=== PATIENT | male | born 1965 | race African-American/Black ===

== ENCOUNTER 2018-12-09 14:55 | Inpatient (IN) | payer OTHER ==
[2018-12-09 16:47] VITALS: BMI 25.0
--- NOTE | 2018-12-09 18:26 | HP ---
CIWA Score - Admission Criteria [facility] Guidelines: Admission for Medically Managed Detox: Requires at least one of the followin. CIWA greater than 12 2. Seizures within the past 24 hours 3. Delirium tremens within the past 24 hours 4. Hallucinations within the past 24 hours 5. Acute intervention needed for co occurring medical disorder 6. Acute intervention needed for co occurring psychiatric disorder 7. Severe withdrawal that cannot be handled at a lower level of care (continued vomiting, continued diarrhea, abnormal vital signs) requiring intravenous medication and/or fluids 8. Admission ROS [facility] - [facility] Chief Complaint: 52 y/o M with PMH HTN, HIV (unknown cd4, VL), who presents for rehab from heroin. Per pt, has been using 1-2 bags of heroin daily. Last used day before yesterday via inhalation. Has been in a methadone program at [address] Is on a dose of 60mg qd. Took it yesterday, but not today. Is interested in going on suboxone. States that his longest sobriety was 8 months. Also has been using cocaine, which he mixes with tobacco. $10 bag/ per day. Denies IVDA, past OD, or seizures. Denies alcohol use. This is pt's first time at [facility]. Denies other rehab or detox. Referred here by legal officer, states he was convicted. PMH: as above PsxH: denies meds: odyfesey (for HIV), asa, amlodipine, gabapentin allergies: NKDA FH: denies SH: rents a room. on parole. smokes 1/2 ppd x 10-15 yrs. denies alcohol use or other drug use other than above. Allergies/Adverse Reactions: Allergies Allergy/AdvReac Type Severity Reaction Status Date / Time No Known Allergies Allergy Verified 12/09/18 16:31 Exam Limitations: No Limitations - Ebola screening Have you traveled outside of the country in the last 21 days: No Have you had contact with anyone from an Ebola affected area: No Have you been sick,other than usual withdrawal symptoms: No Do you have a fever: No - Review of Systems Constitutional: Chills, Fever, Night Sweats, Unexplained wgt Loss EENT: reports: Blurred Vision, Throat Pain Respiratory: reports: Shortness of Breath Cardiac: reports: No Symptoms Reported GI: reports: No Symptoms Reported : reports: No Symptoms Reported Musculoskeletal: reports: Back Pain, Joint Pain Integumentary: reports: No Symptoms Reported Neuro: reports: Headache Endocrine: reports: No Symptoms Reported Hematology: reports: No Symptoms Reported Psychiatric: reports: Orientated x3 Patient History - Patient Medical History Hx Anemia: No Hx Asthma: No Hx Chronic Obstructive Pulmonary Disease (COPD): No Hx Cancer: No Hx Cardiac Disorders: No Hx Congestive Heart Failure: No Hx Hypertension: Yes Hx Hypercholesterolemia: No Hx Pacemaker: No HX Cerebrovascular Accident: No Hx Seizures: No Hx Dementia: No Hx Diabetes: No Hx Gastrointestinal Disorders: No Hx Liver Disease: No Hx Genitourinary Disorders: No Hx Sexually Transmitted Disorders: No Hx Renal Disease (ESRD): No Hx Thyroid Disease: No Hx Human Immunodeficiency Virus (HIV): Yes Hx Hepatitis C: No Hx Depression: No Hx Suicide Attempt: No Hx Bipolar Disorder: No Hx Schizophrenia: No - Patient Surgical History Past Surgical History: No - PPD History Documented Results: Positive w/o proof PPD to be Administered?: No - Reproductive History Patient is a Female of Child Bearing Age (11 -55 yrs old): No - Smoking Cessation Smoking history: Current every day smoker Have you smoked in the past 12 months: Yes Aproximately how many cigarettes per day: 10 Hx Chewing Tobacco Use: No Initiated information on smoking cessation: Yes 'Breaking Loose' booklet given: 12/09/18 - Substance & Tx. History Substance Use Type: Cocaine, Heroin - Substances abused Heroin Substance route: Inhalation Frequency: Daily Amount used: 2bags Age of first use: 44 Date of last use: 12/08/18 Cocaine Substance route: Smoking Frequency: Daily Amount used: $10 daily Family Disease History - Family Disease History Family History: Denies Admission Physical Exam S - Vital Signs Vital Signs: Vital Signs - 24 hr 12/09/18 16:30 Temperature 96.8 F L Pulse Rate 48 L Respiratory 18 Rate Blood Pressure 144/74 - Physical General Appearance: Yes: Within Normal Limits HEENTM: Yes: Within Normal Limits Respiratory: Yes: Lungs Clear Neck: Yes: Supple Breast: Yes: Breast Exam Deferred Cardiology: Yes: Regular Rhythm, Regular Rate, S1, S2 Abdominal: Yes: Within Normal Limits, Flat Genitourinary: Yes: Within Normal Limits Back: Yes: Within Normal Limits Musculoskeletal: Yes: full range of Motion Extremities: Yes: Normal Capillary Refill Neurological: Yes: crossbar frame wirer II-XII NML intact Integumentary: Yes: Within Normal Limits Lymphatic: Yes: Within Normal Limits - Diagnostic (1) Hypertension Current Visit: Yes Status: Chronic (2) HIV (human immunodeficiency virus infection) Current Visit: Yes Status: Chronic (3) Heroin dependence Current Visit: Yes Status: Chronic (4) Cocaine dependence Current Visit: Yes Status: Chronic Cleared for Admission S - Detox or Rehab [facility] Level of Care: Medically Managed Detox Regimen/Protocol: Not Applicable Claeared for Rehab Admission: Yes Breathalyzer - Breathalyzer Breathalyzer: 0 Urine Drug Screen - Test Device Lot number: [id number] Expiration date: 09/21/20 - Control Is test valid?: Yes - Results Drug screen NEGATIVE: No Urine drug screen results: THC-Marijuana, CAROL-Cocaine, FEN-Fentanyl, MOP-Opiates , MTD-Methadone Inpatient Rehab Admission - Rehab Decision to Admit Inpatient rehab admission?: Yes - Initial Determination Are CD services needed?: Yes Free of communicable disease: Yes Not in need of hospitalization: Yes - Rehab Admission Criteria Previous failed treatment: Yes Poor recovery environment: Yes Comorbidities: Yes Lacks judgement: No Patient is meeting Inpatient Rehab admission criteria:: Yes
[2018-12-09] MEDS ORDERED: guaiFENesin 200 MG/10 ML 10 ML UNIT-DOSE CUPS PO PRN (19:38)
[2018-12-09] MEDS ORDERED: P-EPHED 60MG/TRIPROLIDI 2.5MG TABLET PO PRN (19:38)
[2018-12-09] MEDS ORDERED: LOPERAMIDE HCL 2 MG CAPSULE PO PRN (19:38)
[2018-12-09] MEDS ORDERED: MAGNESIUM CITRATE 300 ML BOTTLE PO PRN (19:38)
[2018-12-09] MEDS ORDERED: MAGNESIUM HYDROX 2400MG/30ML ORAL SUSPENSION 30 ML CUP PO PRN (19:38)
[2018-12-09] MEDS ORDERED: MENTHOL/PHENOL 1 EACH UD MM PRN (19:38)
[2018-12-09] MEDS ORDERED: MAG HYDROX/AL HYDROX/SIMETH 30 ML UNIT-DOSE CUP PO PRN (19:38)
[2018-12-09] MEDS: THIAMINE HCL 100 MG TABLET (FP) PO SCH (22:22)
[2018-12-09] MEDS: MELATONIN 5 MG TABLETS PO PRN (22:22)
[2018-12-09 23:10] LABS: URINE APPEARANCE CLEAR; URINE BILIRUBIN NEGATIVE (NEGATIVE); URINE COLOR YELLOW; URINE GLUCOSE (UA) NEGATIVE (NEGATIVE); URINE KETONE NEGATIVE (NEGATIVE); URINE LEUK ESTERASE NEGATIVE (NEGATIVE); URINE NITRITE NEGATIVE (NEGATIVE); URINE PROTEIN NEGATIVE (NEGATIVE); URINE UROBILINOGEN 0.2 mg/dL (0.2-1.0)
[2018-12-10] MEDS ORDERED: METHADONE HCL 10 MG TABLET PO ONE (10:35)
[2018-12-10] MEDS ORDERED: METHADONE 40 MG, METHADONE 20 MG PO ONE (10:45)
[2018-12-10] MEDS ORDERED: METHADONE HCL 10 MG TABLET ONE (10:55)
[2018-12-10] MEDS ORDERED: METHADONE HCL 40 MG DISPERSABLE TABLET ONE (10:55)
[2018-12-10] MEDS: amLODIPine BESYLATE 10 MG TABLET (FP) PO SCH (10:59)
[2018-12-10] MEDS: ASPIRIN COATED 81 MG TABLET.EC PO SCH (11:01)
[2018-12-10] MEDS: PRENATAL VITAMINS W/ FOLIC ACID TABLET (FP) PO SCH (11:02)
[2018-12-10] MEDS: EMTRICITAB/RILPIVIRI/TENOF ALA (ODEFSEY) TABLET PO SCH (12:20)
[2018-12-10] MEDS: THIAMINE HCL 100 MG TABLET (FP) PO SCH (21:54)
[2018-12-10] MEDS: MELATONIN 5 MG TABLETS PO PRN (21:54)
[2018-12-11] MEDS ORDERED: METHADONE HCL 10 MG TABLET PO SCH (06:00)
[2018-12-11] MEDS ORDERED: METHADONE 40 MG, METHADONE 30 MG PO SCH (06:00)
[2018-12-11] MEDS ORDERED: METHADONE HCL 40 MG DISPERSABLE TABLET ONE (06:02)
[2018-12-11] MEDS ORDERED: METHADONE HCL 10 MG TABLET ONE (06:02)
[2018-12-11] MEDS: METHADONE 40 MG, METHADONE 20 MG PO SCH (07:14)
[2018-12-11] MEDS: ASPIRIN COATED 81 MG TABLET.EC PO SCH (09:58)
[2018-12-11] MEDS: PRENATAL VITAMINS W/ FOLIC ACID TABLET (FP) PO SCH (09:58)
[2018-12-11] MEDS: amLODIPine BESYLATE 10 MG TABLET (FP) PO SCH (09:58)
[2018-12-11] MEDS: EMTRICITAB/RILPIVIRI/TENOF ALA (ODEFSEY) TABLET PO SCH (09:59)
[2018-12-11] MEDS ORDERED: NICOTINE POLACRILEX 2 MG GUM BUC PRN (15:14)
[2018-12-11] MEDS: NICOTINE 14 MG/24 HOURS TOPICAL PATCH TD SCH (15:30)
[2018-12-11] MEDS: MELATONIN 5 MG TABLETS PO PRN (21:52)
[2018-12-11] MEDS: THIAMINE HCL 100 MG TABLET (FP) PO SCH (21:52)
[2018-12-12] MEDS ORDERED: METHADONE HCL 10 MG TABLET ONE (06:45)
[2018-12-12] MEDS ORDERED: METHADONE HCL 40 MG DISPERSABLE TABLET ONE (06:46)
[2018-12-12] MEDS: METHADONE 40 MG, METHADONE 20 MG PO SCH (06:48)
[2018-12-12] MEDS: NICOTINE 14 MG/24 HOURS TOPICAL PATCH TD SCH (10:34)
[2018-12-12] MEDS: EMTRICITAB/RILPIVIRI/TENOF ALA (ODEFSEY) TABLET PO SCH (10:35)
[2018-12-12] MEDS: PRENATAL VITAMINS W/ FOLIC ACID TABLET (FP) PO SCH (10:35)
[2018-12-12] MEDS: ASPIRIN COATED 81 MG TABLET.EC PO SCH (10:35)
[2018-12-12] MEDS: amLODIPine BESYLATE 10 MG TABLET (FP) PO SCH (10:35)
[2018-12-12] MEDS: GABAPENTIN 300 MG CAPSULE (FP) PO SCH ×2 (14:16→21:52)
[2018-12-12] MEDS: THIAMINE HCL 100 MG TABLET (FP) PO SCH (21:52)
[2018-12-12] MEDS: MELATONIN 5 MG TABLETS PO PRN (21:52)
[2018-12-13] MEDS ORDERED: METHADONE HCL 40 MG DISPERSABLE TABLET ONE (05:45)
[2018-12-13] MEDS ORDERED: METHADONE HCL 10 MG TABLET ONE (05:45)
[2018-12-13] MEDS: METHADONE 40 MG, METHADONE 20 MG PO SCH (06:41)
[2018-12-13] MEDS: GABAPENTIN 300 MG CAPSULE (FP) PO SCH ×3 (06:41→21:51)
[2018-12-13] MEDS: NICOTINE 14 MG/24 HOURS TOPICAL PATCH TD SCH (10:12)
[2018-12-13] MEDS: EMTRICITAB/RILPIVIRI/TENOF ALA (ODEFSEY) TABLET PO SCH (10:13)
[2018-12-13] MEDS: amLODIPine BESYLATE 10 MG TABLET (FP) PO SCH (10:13)
[2018-12-13] MEDS: PRENATAL VITAMINS W/ FOLIC ACID TABLET (FP) PO SCH (10:13)
[2018-12-13] MEDS: ASPIRIN COATED 81 MG TABLET.EC PO SCH (11:10)
--- NOTE | 2018-12-13 11:24 | PN ---
[facility] Progress Note Note: PT REQUESTING SEROQUEL FOR INSOMNIA. PSYCH EVAL ORDERED PER PT'S REQUEST.
[2018-12-13] MEDS: MELATONIN 5 MG TABLETS PO PRN (21:51)
[2018-12-13] MEDS: THIAMINE HCL 100 MG TABLET (FP) PO SCH (21:51)
[2018-12-14] MEDS ORDERED: METHADONE HCL 10 MG TABLET ONE (05:47)
[2018-12-14] MEDS ORDERED: METHADONE HCL 40 MG DISPERSABLE TABLET ONE (05:48)
[2018-12-14] MEDS: METHADONE 40 MG, METHADONE 20 MG PO SCH (06:33)
[2018-12-14] MEDS: GABAPENTIN 300 MG CAPSULE (FP) PO SCH ×3 (07:05→21:31)
--- NOTE | 2018-12-14 10:53 | PN ---
S Progress Note Note: pt c/o hx sciatica pain that shoots down his right leg fron the hip. Reports occasional numbness and swelling to right foot/toe when he gets up in the morning but did not experience it this morning because stating he elevated his legs in bed. Pt ambulates with a cane with a slight limp. Vital Signs - 24 hr 12/14/18 12/14/18 12/14/18 00:30 03:30 07:12 Temperature 98.1 F Pulse Rate 47 L Respiratory 16 18 18 Rate Blood Pressure 147/79 Laboratory Tests 12/09/18 21:35 Urine Color Yellow Urine Appearance Clear Urine pH 6.0 Ur Specific [place] 1.024 Urine Protein Negative Urine Glucose (UA) Negative Urine Ketones Negative Urine Blood Negative Urine Nitrite Negative Urine Bilirubin Negative Urine Urobilinogen 0.2 Ur Leukocyte Esterase Negative extremities:No edema/cyanosis/clubbing A:hx Lbp sciatica Plan:lidocain patch 2% td apply daily as directed. analgesic balm apply to area @hs. Maintain safety.
[2018-12-14] MEDS: NICOTINE 14 MG/24 HOURS TOPICAL PATCH TD SCH (10:54)
[2018-12-14] MEDS: PRENATAL VITAMINS W/ FOLIC ACID TABLET (FP) PO SCH (10:54)
[2018-12-14] MEDS: amLODIPine BESYLATE 10 MG TABLET (FP) PO SCH (10:54)
[2018-12-14] MEDS: EMTRICITAB/RILPIVIRI/TENOF ALA (ODEFSEY) TABLET PO SCH (10:55)
[2018-12-14] MEDS: ASPIRIN COATED 81 MG TABLET.EC PO SCH (10:56)
[2018-12-14] MEDS: LIDOCAINE 5% TOPICAL PATCH TP SCH (12:34)
--- NOTE | 2018-12-14 14:17 | CONSULT ---
[facility] Psychiatric Consult - Data Date of interview: 12/14/18 Admission source: [facility] Identifying data: Mr Hawthorne is a 52 years old single Black male, unemployed receiving food stamp, living in [facility] seeking rehab treatment for opioid and cocaine Substance Abuse History: reports history of heroin and cocaine use. Refer to addiction counselor's summary for further information Medical History: Significant for hypertension, HIV since 2011, history of treatment for PPD+. Smokes 10 cigarettes daily Psychiatric History: Denies history of previous psychiatric treatment. However, reports suffering from difficulty to sleep Physical/Sexual Abuse/Trauma History: Denies history of emotional, physical or sexual abuse as well as DV relationship Additional Comment: Reports history of multiple previous arrests including one felony conviction for which he served 27 years in detention. Told service writer that he was first released in 2011 then went back for 2 years from [id number] on parole violation. Now on life parole Mental Status Exam - Mental Status Exam Alert and Oriented to: Time, Place, Person Cognitive Function: Fair Patient Appearance: Disheveled Mood: Hopeful, Euthymic Patient Behavior: Cooperative Speech Pattern: Clear Voice Loudness: Normal Thought Process: Intact Thought Disorder: Not Present Hallucinations: Denies Suicidal Ideation: Denies Homicidal Ideation: Denies Insight/Judgement: Poor Sleep: Poorly Appetite: Good Muscle strength/Tone: Severe Hypertonicity Gait/Station: Normal Psychiatric Findings - Problem List ([place] 1, 2,3) (1) Substance-induced sleep disorder Current Visit: Yes Status: Acute (2) Opioid dependence Current Visit: Yes Status: Acute (3) Cocaine dependence Current Visit: Yes Status: Acute (4) Nicotine dependence Current Visit: Yes Status: Chronic (5) HIV (human immunodeficiency virus infection) Current Visit: Yes Status: Chronic (6) Hypertension Current Visit: Yes Status: Chronic (7) PPD positive, treated Current Visit: Yes Status: Resolved - Initial Treatment Plan Initial Treatment Plan: 1) Start Belsomra 10 mg po HS prn for insomnia. 2) Continue inpatient rehabilitation
[2018-12-14] MEDS: THIAMINE HCL 100 MG TABLET (FP) PO SCH (21:32)
[2018-12-14] MEDS: SUVOREXANT 10 MG TABLET PO PRN (21:33)
[2018-12-14] MEDS: METHYL SALICYLATE/MENTHOL OINT 30 GM TUBE TP SCH (21:54)
[2018-12-14] MEDS: LIDOCAINE PATCH REMOVAL MC SCH (21:54)
[2018-12-15] MEDS ORDERED: METHADONE HCL 10 MG TABLET ONE (06:04)
[2018-12-15] MEDS ORDERED: METHADONE HCL 40 MG DISPERSABLE TABLET ONE (06:04)
[2018-12-15] MEDS: GABAPENTIN 300 MG CAPSULE (FP) PO SCH ×3 (06:29→21:44)
[2018-12-15] MEDS: METHADONE 40 MG, METHADONE 20 MG PO SCH (06:29)
[2018-12-15] MEDS: amLODIPine BESYLATE 10 MG TABLET (FP) PO SCH (10:34)
[2018-12-15] MEDS: ASPIRIN COATED 81 MG TABLET.EC PO SCH (10:35)
[2018-12-15] MEDS: NICOTINE 14 MG/24 HOURS TOPICAL PATCH TD SCH (10:35)
[2018-12-15] MEDS: PRENATAL VITAMINS W/ FOLIC ACID TABLET (FP) PO SCH (10:35)
[2018-12-15] MEDS: LIDOCAINE 5% TOPICAL PATCH TP SCH (10:35)
[2018-12-15] MEDS: EMTRICITAB/RILPIVIRI/TENOF ALA (ODEFSEY) TABLET PO SCH (10:36)
[2018-12-15] MEDS: THIAMINE HCL 100 MG TABLET (FP) PO SCH (21:44)
[2018-12-15] MEDS: SUVOREXANT 10 MG TABLET PO PRN (21:45)
[2018-12-15] MEDS: METHYL SALICYLATE/MENTHOL OINT 30 GM TUBE TP SCH (21:46)
[2018-12-15] MEDS: LIDOCAINE PATCH REMOVAL MC SCH (21:46)
[2018-12-16] MEDS ORDERED: METHADONE HCL 10 MG TABLET ONE (05:51)
[2018-12-16] MEDS ORDERED: METHADONE HCL 40 MG DISPERSABLE TABLET ONE (05:51)
[2018-12-16] MEDS: GABAPENTIN 300 MG CAPSULE (FP) PO SCH ×3 (06:35→21:56)
[2018-12-16] MEDS: METHADONE 40 MG, METHADONE 20 MG PO SCH (06:35)
[2018-12-16] MEDS: ASPIRIN COATED 81 MG TABLET.EC PO SCH (11:46)
[2018-12-16] MEDS: PRENATAL VITAMINS W/ FOLIC ACID TABLET (FP) PO SCH (11:46)
[2018-12-16] MEDS: amLODIPine BESYLATE 10 MG TABLET (FP) PO SCH (11:47)
[2018-12-16] MEDS: NICOTINE 14 MG/24 HOURS TOPICAL PATCH TD SCH (11:48)
[2018-12-16] MEDS: LIDOCAINE 5% TOPICAL PATCH TP SCH (11:48)
[2018-12-16] MEDS: EMTRICITAB/RILPIVIRI/TENOF ALA (ODEFSEY) TABLET PO SCH (11:49)
[2018-12-16] MEDS: THIAMINE HCL 100 MG TABLET (FP) PO SCH (21:56)
[2018-12-16] MEDS: SUVOREXANT 10 MG TABLET PO PRN (21:57)
[2018-12-16] MEDS: METHYL SALICYLATE/MENTHOL OINT 30 GM TUBE TP SCH (21:58)
[2018-12-16] MEDS: LIDOCAINE PATCH REMOVAL MC SCH (21:58)
[2018-12-17] MEDS ORDERED: METHADONE HCL 10 MG TABLET ONE (06:40)
[2018-12-17] MEDS: GABAPENTIN 300 MG CAPSULE (FP) PO SCH ×3 (06:41→21:15)
[2018-12-17] MEDS: METHADONE 40 MG, METHADONE 20 MG PO SCH (06:41)
[2018-12-17] MEDS ORDERED: METHADONE HCL 40 MG DISPERSABLE TABLET ONE (06:41)
[2018-12-17] MEDS ORDERED: METHADONE HCL 40 MG DISPERSABLE TABLET PO SCH (06:45)
[2018-12-17] MEDS: amLODIPine BESYLATE 10 MG TABLET (FP) PO SCH (10:49)
[2018-12-17] MEDS: ASPIRIN COATED 81 MG TABLET.EC PO SCH (10:49)
[2018-12-17] MEDS: PRENATAL VITAMINS W/ FOLIC ACID TABLET (FP) PO SCH (10:49)
[2018-12-17] MEDS: LIDOCAINE 5% TOPICAL PATCH TP SCH (10:49)
[2018-12-17] MEDS: EMTRICITAB/RILPIVIRI/TENOF ALA (ODEFSEY) TABLET PO SCH (10:49)
[2018-12-17] MEDS: NICOTINE 14 MG/24 HOURS TOPICAL PATCH TD SCH (10:49)
--- NOTE | 2018-12-17 11:10 | PN ---
S Progress Note Note: Patient reports sleeping poorly despite taking Belsomra 10 mg at bedtime. Requests that medication dosage be increased
[2018-12-17] MEDS: MELATONIN 5 MG TABLETS PO PRN (21:14)
[2018-12-17] MEDS: SUVOREXANT 15 MG TABLET PO PRN (21:14)
[2018-12-17] MEDS: LIDOCAINE PATCH REMOVAL MC SCH (21:16)
[2018-12-17] MEDS: THIAMINE HCL 100 MG TABLET (FP) PO SCH (21:16)
[2018-12-17] MEDS: METHYL SALICYLATE/MENTHOL OINT 30 GM TUBE TP SCH (21:16)
[2018-12-18] MEDS: IBUPROFEN 400 MG TABLET (FP) PO PRN (01:10)
[2018-12-18] MEDS ORDERED: METHADONE HCL 10 MG TABLET ONE (06:51)
[2018-12-18] MEDS ORDERED: METHADONE HCL 40 MG DISPERSABLE TABLET ONE (06:52)
[2018-12-18] MEDS: METHADONE 40 MG, METHADONE 20 MG PO SCH (06:53)
[2018-12-18] MEDS: GABAPENTIN 300 MG CAPSULE (FP) PO SCH ×3 (06:57→21:39)
[2018-12-18] MEDS: NICOTINE 14 MG/24 HOURS TOPICAL PATCH TD SCH (10:05)
[2018-12-18] MEDS: ASPIRIN COATED 81 MG TABLET.EC PO SCH (10:05)
[2018-12-18] MEDS: amLODIPine BESYLATE 10 MG TABLET (FP) PO SCH (10:05)
[2018-12-18] MEDS: LIDOCAINE 5% TOPICAL PATCH TP SCH (10:05)
[2018-12-18] MEDS: PRENATAL VITAMINS W/ FOLIC ACID TABLET (FP) PO SCH (10:05)
[2018-12-18] MEDS: EMTRICITAB/RILPIVIRI/TENOF ALA (ODEFSEY) TABLET PO SCH (10:06)
[2018-12-18] MEDS: MELATONIN 5 MG TABLETS PO PRN (21:39)
[2018-12-18] MEDS: SUVOREXANT 15 MG TABLET PO PRN (21:39)
[2018-12-18] MEDS: LIDOCAINE PATCH REMOVAL MC SCH (21:39)
[2018-12-18] MEDS: THIAMINE HCL 100 MG TABLET (FP) PO SCH (21:39)
[2018-12-18] MEDS: METHYL SALICYLATE/MENTHOL OINT 30 GM TUBE TP SCH (21:39)
[2018-12-19] MEDS: IBUPROFEN 400 MG TABLET (FP) PO PRN (00:45)
[2018-12-19] MEDS ORDERED: METHADONE HCL 10 MG TABLET ONE (06:00)
[2018-12-19] MEDS ORDERED: METHADONE HCL 40 MG DISPERSABLE TABLET ONE (06:00)
[2018-12-19] MEDS: METHADONE 40 MG, METHADONE 20 MG PO SCH (06:46)
[2018-12-19] MEDS: GABAPENTIN 300 MG CAPSULE (FP) PO SCH ×3 (06:47→21:39)
[2018-12-19] MEDS: amLODIPine BESYLATE 10 MG TABLET (FP) PO SCH (10:42)
[2018-12-19] MEDS: NICOTINE 14 MG/24 HOURS TOPICAL PATCH TD SCH (10:42)
[2018-12-19] MEDS: ASPIRIN COATED 81 MG TABLET.EC PO SCH (10:42)
[2018-12-19] MEDS: PRENATAL VITAMINS W/ FOLIC ACID TABLET (FP) PO SCH (10:42)
[2018-12-19] MEDS: EMTRICITAB/RILPIVIRI/TENOF ALA (ODEFSEY) TABLET PO SCH (10:43)
[2018-12-19] MEDS: LIDOCAINE 5% TOPICAL PATCH TP SCH (10:45)
[2018-12-19] MEDS: METHYL SALICYLATE/MENTHOL OINT 30 GM TUBE TP SCH (21:39)
[2018-12-19] MEDS: MELATONIN 5 MG TABLETS PO PRN (21:39)
[2018-12-19] MEDS: LIDOCAINE PATCH REMOVAL MC SCH (21:39)
[2018-12-19] MEDS: THIAMINE HCL 100 MG TABLET (FP) PO SCH (21:39)
[2018-12-19] MEDS: SUVOREXANT 15 MG TABLET PO PRN (21:42)
[2018-12-20] MEDS ORDERED: METHADONE HCL 10 MG TABLET ONE (06:39)
[2018-12-20] MEDS ORDERED: METHADONE HCL 40 MG DISPERSABLE TABLET ONE (06:40)
[2018-12-20] MEDS: METHADONE 40 MG, METHADONE 20 MG PO SCH (06:40)
[2018-12-20] MEDS: GABAPENTIN 300 MG CAPSULE (FP) PO SCH ×3 (06:41→22:23)
[2018-12-20 07:11] VITALS: TEMP 98.1
[2018-12-20] MEDS: LIDOCAINE 5% TOPICAL PATCH TP SCH (11:05)
[2018-12-20] MEDS: PRENATAL VITAMINS W/ FOLIC ACID TABLET (FP) PO SCH (11:05)
[2018-12-20] MEDS: ASPIRIN COATED 81 MG TABLET.EC PO SCH (11:05)
[2018-12-20] MEDS: amLODIPine BESYLATE 10 MG TABLET (FP) PO SCH (11:06)
[2018-12-20] MEDS: EMTRICITAB/RILPIVIRI/TENOF ALA (ODEFSEY) TABLET PO SCH (11:06)
[2018-12-20] MEDS: IBUPROFEN 400 MG TABLET (FP) PO PRN ×2 (11:07→23:45)
[2018-12-20] MEDS: NICOTINE 14 MG/24 HOURS TOPICAL PATCH TD SCH (11:22)
[2018-12-20] MEDS: ACETAMINOPHEN 325 MG TABLET (FP) PO PRN (13:51)
--- NOTE | 2018-12-20 16:52 | PN ---
[facility] Progress Note Note: Psychiatric nurse practitioner note: Belsomra 15mg renewed X3 days. Verbal consent given.
[2018-12-20] MEDS: THIAMINE HCL 100 MG TABLET (FP) PO SCH (22:23)
[2018-12-20] MEDS: LIDOCAINE PATCH REMOVAL MC SCH (22:24)
[2018-12-20] MEDS: MELATONIN 5 MG TABLETS PO PRN (22:24)
[2018-12-20] MEDS: METHYL SALICYLATE/MENTHOL OINT 30 GM TUBE TP SCH (22:24)
[2018-12-20] MEDS: SUVOREXANT 15 MG TABLET PO PRN (22:25)
[2018-12-21] MEDS ORDERED: METHADONE HCL 10 MG TABLET ONE (06:04)
[2018-12-21] MEDS ORDERED: METHADONE HCL 40 MG DISPERSABLE TABLET ONE (06:04)
[2018-12-21] MEDS: METHADONE 40 MG, METHADONE 20 MG PO SCH (06:32)
[2018-12-21] MEDS: GABAPENTIN 300 MG CAPSULE (FP) PO SCH ×3 (06:50→22:28)
[2018-12-21] MEDS: amLODIPine BESYLATE 10 MG TABLET (FP) PO SCH (11:02)
[2018-12-21] MEDS: ASPIRIN COATED 81 MG TABLET.EC PO SCH (11:02)
[2018-12-21] MEDS: LIDOCAINE 5% TOPICAL PATCH TP SCH (11:02)
[2018-12-21] MEDS: PRENATAL VITAMINS W/ FOLIC ACID TABLET (FP) PO SCH (11:02)
[2018-12-21] MEDS: EMTRICITAB/RILPIVIRI/TENOF ALA (ODEFSEY) TABLET PO SCH (11:02)
[2018-12-21] MEDS: NICOTINE 14 MG/24 HOURS TOPICAL PATCH TD SCH (11:03)
--- NOTE | 2018-12-21 11:55 | PN ---
[facility] Progress Note Note: s:pt c/o small nodule in inner right lower leg x last one week. Reports slight pain when touched. no mobility deficit but walks with cane. o:Palpated about 2 small cyst-like lesions under skin. No redness or swelling noted to area on inner side of right calf. Pt is oob ambulating with his cane on the unit. Vital Signs - 24 hr 12/21/18 12/21/18 12/21/18 00:30 03:30 07:04 Temperature 98.1 F Pulse Rate 63 Respiratory 18 18 18 Rate Blood Pressure 146/74 a:r/o cyst r/o fatty lipoma p:motrin prn if pain follow up with primary care for further evaluation after rehab. Evaluate at [facility] if symptoms change and worsens.
[2018-12-21 15:47] VITALS: PULSE 60
[2018-12-21] MEDS: IBUPROFEN 400 MG TABLET (FP) PO PRN (18:46)
[2018-12-21] MEDS: LIDOCAINE PATCH REMOVAL MC SCH (22:28)
[2018-12-21] MEDS: SUVOREXANT 15 MG TABLET PO PRN (22:28)
[2018-12-21] MEDS: METHYL SALICYLATE/MENTHOL OINT 30 GM TUBE TP SCH (22:28)
[2018-12-21] MEDS: MELATONIN 5 MG TABLETS PO PRN (22:28)
[2018-12-21] MEDS: THIAMINE HCL 100 MG TABLET (FP) PO SCH (22:29)
[2018-12-21] MEDS: ACETAMINOPHEN 325 MG TABLET (FP) PO PRN (22:30)
[2018-12-22] MEDS: IBUPROFEN 400 MG TABLET (FP) PO PRN (00:56)
[2018-12-22] MEDS ORDERED: METHADONE HCL 40 MG DISPERSABLE TABLET ONE (06:04)
[2018-12-22] MEDS ORDERED: METHADONE HCL 10 MG TABLET ONE (06:04)
[2018-12-22] MEDS: METHADONE 40 MG, METHADONE 20 MG PO SCH (06:28)
[2018-12-22] MEDS: GABAPENTIN 300 MG CAPSULE (FP) PO SCH (06:29)
[2018-12-22 06:57] VITALS: BP 135/69
[2018-12-22] MEDS: amLODIPine BESYLATE 10 MG TABLET (FP) PO SCH (09:54)
[2018-12-22] MEDS: PRENATAL VITAMINS W/ FOLIC ACID TABLET (FP) PO SCH (09:54)
[2018-12-22] MEDS: EMTRICITAB/RILPIVIRI/TENOF ALA (ODEFSEY) TABLET PO SCH (09:54)
[2018-12-22] MEDS: ASPIRIN COATED 81 MG TABLET.EC PO SCH (09:54)
[2018-12-22] MEDS: LIDOCAINE 5% TOPICAL PATCH TP SCH (09:55)
[2018-12-22] MEDS: NICOTINE 14 MG/24 HOURS TOPICAL PATCH TD SCH (09:56)
--- NOTE | 2018-12-22 09:56 | PN ---
[facility] Progress Note (SOAP) Subjective: Pt is a 53 y/o male admitted on 12/09/18 to rehab and discharged today 12/22/18 after completing treatment. Tolerated rehab well. Pt is homeless and currently in an [facility]. Denies s/h/i. Objective: 12/22/18 10:19 General:Nad,Well groomed. HEENT:Normocephalic; perrla,eomi. Neck:supple Heart: S1 S2 Lungs:cta,jazlyn. Abdomen:+bs,soft,nt,nd, Ext: No e/c/c;AROM;Ambulates with steady gait. Neuro:Alert o x 3, cr ii-xii intact. Vital Signs 12/22/18 12/22/18 03:30 06:56 Temperature 98.1 F Pulse Rate 60 Respiratory 18 19 Rate Blood Pressure 135/69 Laboratory Tests 12/09/18 21:35 Urine Color Yellow Urine Appearance Clear Urine pH 6.0 Ur Specific [place] 1.024 Urine Protein Negative Urine Glucose (UA) Negative Urine Ketones Negative Urine Blood Negative Urine Nitrite Negative Urine Bilirubin Negative Urine Urobilinogen 0.2 Ur Leukocyte Esterase Negative Home Medications Medication Instructions Recorded Amlodipine Besylate 10 mg PO DAILY 12/09/18 Aspirin [Aspirin EC] 81 mg PO DAILY 12/09/18 Emtricitab/Rilpiviri/Tenof Ala 1 tab PO DAILY 12/09/18 [Odefsey Tablet] Gabapentin 300 mg PO TID 12/09/18 Meloxicam 15 mg PO DAILY 12/09/18 Pt has own medications. Assessment: 12/22/18 10:24 Nad Medically stable for discharge 12/22/18 10:36 12/22/18 09:56 - [facility] Inpatient Service Med by Cora De Leon Acct Num: [id number] : 1965 Patient Age: 53 Addendum entered and electronically signed by Cora De Leon NP 12/22/18 10 :34: Additional Dx: Methadone maintenance Original Note: [facility] Inpatient Services Medical - Diagnosis (1) Cocaine dependence Qualifiers: Substance use status: uncomplicated Qualified Code(s): F14.20 - Cocaine dependence, uncomplicated Current Visit: Yes Status: Chronic (2) Opioid dependence Qualifiers: Substance use status: uncomplicated Qualified Code(s): F11.20 - Opioid dependence, uncomplicated Current Visit: Yes Status: Chronic (3) HIV (human immunodeficiency virus infection) Qualifiers: HIV symptom status: unspecified Qualified Code(s): B20 - Human immunodeficiency virus [HIV] disease Current Visit: Yes Status: Chronic (4) Hypertension Qualifiers: Hypertension type: essential hypertension Qualified Code(s): I10 - Essential (primary) hypertension Current Visit: Yes Status: Chronic (5) Nicotine dependence Qualifiers: Nicotine product type: cigarettes Substance use status: uncomplicated Qualified Code(s): F17.210 - Nicotine dependence, cigarettes, uncomplicated Current Visit: Yes Status: Chronic (6) Ambulates with cane Current Visit: Yes Status: Chronic (7) Chronic lower back pain Qualifiers: Back pain laterality: right Current Visit: Yes Status: Chronic (8) History of sciatica Current Visit: Yes Status: Chronic Initialized on 12/22/18 09:56 - END OF NOTE Plan: D/c pt today follow up with cd recommendation at [facility] [place]. Follow up with housing at [facility] @ [address] [place] [address] Follow up with primary care with [facility] @ [address] [place] [address]
== END 2018-12-22 10:10 | disposition home or self-care (01) | DRG 772 ==
LOC: YASAS 14:55 → Y5N 19:28 → Y3N 23:57 → Y5N 23:59
PROVIDERS: ADMIT Neuromusculoskeletal Medicine & OMM; ATTEND Neuromusculoskeletal Medicine & OMM
PROC: HZ42ZZZ Group Counseling for Substance Abuse Treatment, Cognitive-Behavioral (ICD-10-PCS; principal; 2018-12-09)
DX: F11.20 Opioid dependence, uncomplicated (principal); F14.20 Cocaine dependence, uncomplicated; F17.210 Nicotine dependence, cigarettes, uncomplicated; F19.282 Other psychoactive substance dependence with psychoactive substance-induced sleep disorder; I10 Essential (primary) hypertension; Z21 Asymptomatic human immunodeficiency virus [HIV] infection status; M54.41 Lumbago with sciatica, right side; G89.29 Other chronic pain; D17.9 Benign lipomatous neoplasm, unspecified; R26.2 Difficulty in walking, not elsewhere classified; Z99.89 Dependence on other enabling machines and devices
CPT/HCPCS: 81003